=== PATIENT | female | born 1990 | race Caucasian/White ===

== ENCOUNTER 2016-07-20 08:33 | Inpatient (IN) | payer OTHER ==
[2016-07-20] VITALS (25 sets, daily range): BP systolic 108–143; BP diastolic 56–83
[~2016-07-20] VITALS: Ht 162.6 cm; Wt 90.7 kg
[2016-07-20] MEDS ORDERED: PRENATAL TABLE1 EAC3 PO (08:45)
[2016-07-20 09:32] LABS: EOSINOPHIL (%) 0.3 % (0-5); HEMATOCRIT 36.3 % (36.0-46.0); IMMATURE GRANULOCYTE (%) 0.4 % (0.0-0.7); IMMATURE GRANULOCYTE COUNT 0.1 K/uL; INSTRUMENT ABS NEUTROPHIL CT 9.3 K/uL; MCHC 32.2 G/DL (30.0-36.0); MCV 86.8 FL (83-99); MEAN PLAT.VOLUME 12.4 uM^3 (9.5-12.4); MONOCYTE (%) 6.1 % (3-12); MONOCYTE COUNT 0.7 K/uL (0-0.8); NEUTROPHIL (%) 76.7 % (45-76); NEUTROPHIL COUNT 9.3 K/uL (1.8-6.4); PLATELET COUNT 325 K/uL (156-360); RBC DIS.WIDTH-CV 13.9 % (11.8-14.6); RBC DIS.WIDTH-SD 43.7 % (39-53); RED BLOOD COUNT 4.18 M/uL (3.80-5.20); WHITE BLOOD COUNT 12.1 K/uL (4.1-10.2)
[2016-07-20 09:40] LABS: CHLORIDE 108 mEq/L (99-109); POTASSIUM 4.1 mEq/L (3.7-5.4); SODIUM 137 mEq/L (136-147)
[2016-07-20 09:42] LABS: GLUCOSE 74 mg/dL (70-99)
[2016-07-20 09:43] LABS: ANION GAP 15 MEQ/L (2-14)
[2016-07-20 09:44] LABS: TOTAL BILIRUBIN 0.3 mg/dL (0.0-1.0)
[2016-07-20 09:46] LABS: ALKALINE PHOSPHATASE 208 IU/L (3-129); GFR ESTIMATE (CALCULATED) > 59 mL/min/
[2016-07-20 09:47] LABS: UREA NITROGEN (BUN) 10 mg/dL (9-23)
[2016-07-20 09:49] LABS: URIC ACID 4.6 mg/dL (3.1-9.2)
[2016-07-20 10:35] LABS: LACTATE DEHYDROGENASE 186 IU/L (20-246)
[2016-07-20 12:34] LABS: UR CREATININE CONCENTRATION 118.2 MG/DL
[2016-07-21] VITALS (10 sets, daily range): BP systolic 104–131; BP diastolic 52–75
[2016-07-22 05:15] LABS: BASOPHIL COUNT 0.1 K/uL (0-0.1); EOSINOPHIL (%) 1.2 % (0-5); EOSINOPHIL COUNT 0.2 K/uL (0-0.3); HEMATOCRIT 29.9 % (36.0-46.0); IMMATURE GRANULOCYTE (%) 0.5 % (0.0-0.7); IMMATURE GRANULOCYTE COUNT 0.1 K/uL; INSTRUMENT ABS NEUTROPHIL CT 8.8 K/uL; LYMPHOCYTE COUNT 2.7 K/uL (1.0-2.8); MCH 27.9 PG (29.0-34.0); MCHC 31.4 G/DL (30.0-36.0); MCV 88.7 FL (83-99); MEAN PLAT.VOLUME 11.9 uM^3 (9.5-12.4); MONOCYTE (%) 8.3 % (3-12); MONOCYTE COUNT 1.1 K/uL (0-0.8); NEUTROPHIL (%) 68.5 % (45-76); NEUTROPHIL COUNT 8.8 K/uL (1.8-6.4); PLATELET COUNT 263 K/uL (156-360); RBC DIS.WIDTH-CV 14.5 % (11.8-14.6); RBC DIS.WIDTH-SD 46.5 % (39-53); RED BLOOD COUNT 3.37 M/uL (3.80-5.20); WHITE BLOOD COUNT 12.8 K/uL (4.1-10.2)
[2016-07-22 07:32] VITALS: BP 130/69
[2016-07-22] MEDS ORDERED: IBUPROFEN800 MG PO (08:37)
== END 2016-07-22 12:20 | disposition home or self-care (01) | DRG 775 ==
LOC: LDRP-OP 08:33 → 2WEST 08:34
PROVIDERS: Advanced Practice Midwife; Obstetrics & Gynecology
PROC: 3E0R3CZ (ICD-10-PCS; principal; 2016-07-20)
PROC: 00HU33Z Insertion of Infusion Device into Spinal Canal, Percutaneous Approach (ICD-10-PCS; principal; 2016-07-20)
PROC: 0WQNXZZ Repair Female Perineum, External Approach (ICD-10-PCS; principal; 2016-07-20)
PROC: 10E0XZZ Delivery of Products of Conception, External Approach (ICD-10-PCS; principal; 2016-07-20)
DX: O70.0 First degree perineal laceration during delivery (principal); O99.02 Anemia complicating childbirth; D62 Acute posthemorrhagic anemia; O99.89 Other specified diseases and conditions complicating pregnancy, childbirth and the puerperium; N90.60 Unspecified hypertrophy of vulva; O99.214 Obesity complicating childbirth; E66.9 Obesity, unspecified; Z68.30 Body mass index [BMI] 30.0-30.9, adult; Z3A.39 39 weeks gestation of pregnancy; Z37.0 Single live birth
CPT/HCPCS: 80053; 82570; 83615; 84156; 84550; 85025; C1755; J0595; J3010; J7120